=== PATIENT | female | born 2000 | race Hispanic/Latino ===

== ENCOUNTER 2023-09-25 16:34 | Day surgery (SDC) | payer MEDICAID ==
[2023-09-25] MEDS ORDERED: hydrALAZINE 20 MG/ML VIAL SLOW IVP PRN (18:15)
== END 2023-09-25 20:15 | disposition home or self-care (01) ==
LOC: CSHLD/OP 16:34
PROVIDERS: ATTEND Obstetrics & Gynecology
DX: O99.891 Other specified diseases and conditions complicating pregnancy (principal); R55 Syncope and collapse; R00.1 Bradycardia, unspecified; H53.8 Other visual disturbances; O26.893 Other specified pregnancy related conditions, third trimester; Z3A.35 35 weeks gestation of pregnancy
CPT/HCPCS: 76819; 80053; 83735; 85025; 85379; 93970

== ENCOUNTER 2023-09-25 20:23 | Emergency (ER) | payer MEDICAID, OTHER ==
[2023-09-25 21:49] LABS: #Basophils 0.04 10x3/uL (0.0-0.2); #Eosinphils 0.08 10x3/uL (0.0-0.5); #Monocytes 0.85 10x3/uL (0.0-1.1); %Basophils 0.4 % (0.0-2.0); %Eosinophils 0.8 % (0.0-6.0); %Lymphocytes 20.6 % (18.0-47.0); %Monocytes 8.9 % (0.0-10.0); %Neutrophils 66.8 % (40.0-75.0); Hematocrit 34.6 % (34.9-44.5); Hemoglobin 11.2 g/dL (12.0-15.5); Mean Corpuscular HGB CONC 32.4 g/dL (32.0-36.0); Mean Corpuscular Hemoglobin 27.2 pg (27.0-33.0); Platelet Count 325 10x3/uL (150-450); RBC Distribution Width 14.2 % (11.5-14.5); Red Blood Cell (RBC) Count 4.12 10x6/uL (3.90-5.03); White Blood Cell (WBC) Count 9.6 10x3/uL (3.5-10.5)
[2023-09-25 21:55] LABS: ALT (SGPT) 14 U/L (8-55); AST (SGOT) 17 U/L (5-34); Albumin 2.7 g/dL (3.5-5.0); Alkaline Phosphatase 120 U/L (40-110); Anion Gap 14 mmol/L (10-20); BUN (Urea Nitrogen) 7 mg/dL (7.0-18.7); Bilirubin, Total 0.4 mg/dL (0.2-1.2); Calc. Creatinine Clearance 0 mL/min (70-130); Calcium 8.9 mg/dL (7.8-10.44); Carbon Dioxide 20 mmol/L (22-29); Chloride 103 mmol/L (98-107); Estimated GFR 129; Globulin 4.1 g/dL (2.4-3.5); Glucose 86 mg/dL (70-105); Magnesium 1.9 mg/dL (1.6-2.6); Potassium 3.8 mmol/L (3.5-5.1); Protein, Total 6.8 g/dL (6.0-8.3); Sodium 133 mmol/L (136-145)
[2023-09-26] MEDS ORDERED: Iopamidol 370 76% 100 ML VIAL ONE (10:49)
== END 2023-09-26 02:04 | disposition home or self-care (01) ==
LOC: CSHERS 20:23
DX: O99.891 Other specified diseases and conditions complicating pregnancy (principal); R07.9 Chest pain, unspecified; R06.00 Dyspnea, unspecified; R42 Dizziness and giddiness; Z3A.36 36 weeks gestation of pregnancy
CPT/HCPCS: 80053; 83735; 85025; 85379; 93970

== ENCOUNTER 2023-10-21 14:12 | Day surgery (SDC) | payer OTHER ==
[2023-10-21 15:26] VITALS: BMI 32.9
== END 2023-10-21 17:25 | disposition home or self-care (01) ==
LOC: CSHLD/OP 14:12
PROVIDERS: ATTEND Family Medicine
DX: O42.912 Preterm premature rupture of membranes, unspecified as to length of time between rupture and onset of labor, second trimester (principal); O47.02 False labor before 37 completed weeks of gestation, second trimester; O99.891 Other specified diseases and conditions complicating pregnancy; R00.0 Tachycardia, unspecified; O99.012 Anemia complicating pregnancy, second trimester; Z3A.18 18 weeks gestation of pregnancy
CPT/HCPCS: 87480; 87510; 87660; 99283

== ENCOUNTER 2023-10-28 19:00 | Inpatient (IN) | payer OTHER ==
[2023-10-28 20:18] VITALS: BMI 32.9
[2023-10-28] MEDS ORDERED: Lidocaine 1% (PF) 30 ML VIAL SC PRN (21:44)
[2023-10-28] MEDS ORDERED: hydrALAZINE 20 MG/ML VIAL SLOW IVP PRN (21:44)
[2023-10-28] MEDS ORDERED: Tranexamic Acid 1,000 MG/10 ML VIAL IVP PRN (21:44)
[2023-10-28] MEDS ORDERED: Butorphanol Tartrate 1 MG/ML VIAL SLOW IVP PRN (21:44)
[2023-10-28] MEDS ORDERED: Promethazine HCl 25 MG/ML VIAL IM PRN (21:44)
[2023-10-28] MEDS ORDERED: Misoprostol 200 MCG TAB PR PRN (21:44)
[2023-10-28] MEDS ORDERED: Carboprost 250 MCG/ML AMP IM PRN (21:44)
[2023-10-28] MEDS ORDERED: Methylergonovine 0.2 MG/ML VIAL IM PRN (21:44)
[2023-10-28] MEDS ORDERED: Acetaminophen 500 MG TAB PO PRN (21:44)
[2023-10-28] MEDS ORDERED: Diphenoxylate HCl/Atropine Tablet PO PRN (21:44)
[2023-10-28] MEDS ORDERED: Lactated Ringer's 1,000 ML IV SCH (21:45)
[2023-10-28] MEDS ORDERED: Oxytocin 30 units/NS 500 ML 500 ML IV SCH (21:45)
[2023-10-28 22:08] LABS: Hematocrit 36.1 % (34.9-44.5); Mean Corpuscular HGB CONC 33.2 g/dL (32.0-36.0); Mean Corpuscular Volume 81.1 fL (81.6-98.3); Platelet Count 306 10x3/uL (150-450); RBC Distribution Width 14.8 % (11.5-14.5); Red Blood Cell (RBC) Count 4.45 10x6/uL (3.90-5.03); White Blood Cell (WBC) Count 8.9 10x3/uL (3.5-10.5)
[2023-10-28 22:29] LABS: Syphilis Antibody Nonreactive (Nonreactive); Syphilis Antibody Index 0.02 S/CO (<1.00 Non-Reactive)
[2023-10-28 22:30] LABS: HBsAg Index 0.17 S/CO (0-0.99); Hep B Surf Ag - L&D Non-Reactive S/CO (NonReactive)
[2023-10-28] MEDS: Misoprostol 100 MCG TAB VAG SCH (23:11)
[2023-10-29] MEDS: Ondansetron PF 4 MG/2 ML Vial IVP PRN (05:24)
[2023-10-29] MEDS: Oxytocin 30 units/NS 500 ML 500 ML IV SCH (09:00)
[2023-10-29] MEDS: fentaNYL 50 mcg/mL 1 mL Vial SLOW IVP PRN (14:29)
[2023-10-29] MEDS: Ibuprofen 800 MG TAB PO SCH (16:58)
[2023-10-29] MEDS ORDERED: Oxytocin 30 units/NS 500 ML 500 ML IV SCH (17:19)
[2023-10-29] MEDS ORDERED: Misoprostol 200 MCG TAB VAG PRN (17:19)
[2023-10-29] MEDS ORDERED: Bisacodyl 10 MG SUPP PR PRN (17:19)
[2023-10-29] MEDS ORDERED: Ondansetron PF 4 MG/2 ML Vial IVP PRN (17:19)
[2023-10-29] MEDS ORDERED: Lanolin Ointment 7 GM TUBE TOP PRN (17:19)
[2023-10-29] MEDS ORDERED: Milk Of Magnesia 30 ML UDCUP PO PRN (17:19)
[2023-10-29] MEDS ORDERED: hydrALAZINE 20 MG/ML VIAL SLOW IVP PRN (17:19)
[2023-10-29] MEDS ORDERED: Methylergonovine 0.2 MG/ML VIAL IM PRN (17:19)
[2023-10-29] MEDS ORDERED: Acetaminophen 325 MG TAB PO PRN (17:19)
[2023-10-29] MEDS: Boostrix 0.5 ML (Tdap) VIAL (>/=7 yrs of age) IM ONE (18:03)
[2023-10-29] MEDS: Benzocaine-Menthol 82.5 ML CAN TOP PRN (18:04)
[2023-10-29] MEDS: Preparation H Ointment 28 GM TUBE PR PRN (18:05)
[2023-10-29] MEDS: Ferrous Sulfate 325 MG TAB PO SCH (19:09)
[2023-10-30] MEDS: Docusate 100 MG CAP PO SCH (01:08)
[2023-10-30] MEDS: Ibuprofen 800 MG TAB PO SCH (01:08)
[2023-10-30] MEDS: Prenatal Vitamin 1 TAB PO SCH (08:39)
[2023-10-30] MEDS: Ferrous Sulfate 325 MG TAB PO SCH (08:40)
[2023-10-31 07:56] VITALS: BP 110/58; TEMP 98.4
[2023-10-31] MEDS ORDERED: Benzocaine/Menthol 1 LOZ LOZ PO PRN (08:16)
[2023-10-31] MEDS: Ferrous Sulfate 325 MG TAB PO SCH (08:31)
[2023-10-31] MEDS: Benzocaine/Menthol 1 LOZ LOZ PO SCH (08:31)
== END 2023-10-31 11:10 | disposition home or self-care (01) | DRG 807 ==
LOC: CSHLD 19:51 → CSHPP 10-29 17:05
PROVIDERS: ADMIT Family Medicine; ATTEND Family Medicine
PROC: 10E0XZZ Delivery of Products of Conception, External Approach (ICD-10-PCS; principal; 2023-10-29)
PROC: 10907ZC Drainage of Amniotic Fluid, Therapeutic from Products of Conception, Via Natural or Artificial Opening (ICD-10-PCS; 2023-10-29)
PROC: 0UQMXZZ Repair Vulva, External Approach (ICD-10-PCS; 2023-10-29)
DX: O76 Abnormality in fetal heart rate and rhythm complicating labor and delivery (principal); Z37.0 Single live birth; Z3A.40 40 weeks gestation of pregnancy; O77.0 Labor and delivery complicated by meconium in amniotic fluid; O70.0 First degree perineal laceration during delivery
CPT/HCPCS: 36415; 51701; 85027; 86780; 86850; 86900; 86901; 87340; J2405; J2590; J3010